=== PATIENT | female | born 1930 | race Caucasian/White ===

== ENCOUNTER 2016-10-31 08:17 | Emergency (ER) | payer OTHER ==
[2016-10-31 08:25] VITALS: RESP 18
--- NOTE | 2016-10-31 09:18 | EDPHY ---
H & P Time Seen by Provider: 10/31/16 09:00 HPI/ROS: CHIEF COMPLAINT: Cough congestion flu-like symptoms times 48 hours HISTORY OF PRESENT ILLNESS: 86-year-old female nonsmoker, arrives via private vehicle, no history chronic pulmonary condition complaining of 36-48 hours of nasal congestion, sore throat, nonproductive cough, sinus pressure. No chest pain. No back pain. No abdominal pain. No dyspnea. No headache. No altered mentation. No fever or chills. No abdominal pain. No nuchal rigidity Did receive influenza vaccination this season. PRIMARY CARE PROVIDER:Dr. Sandra Herndon REVIEW OF SYSTEMS: A ten point review of systems was performed and is negative with the exception of the items mentioned in the HPI PAST MEDICAL & SURGICAL HISTORY: No pertinent medical or surgical history SOCIAL HISTORY: nonsmoker PHYSICAL EXAM (Prior to examination, patient consented to physical exam, hands were washed and my usual and customary physical exam procedures followed) 1) GENERAL: Well-developed, well-nourished, alert and oriented. Appears nontoxic. 2) HEAD: Normocephalic, atraumatic 3) HEENT: Pupils equal, round, reactive to light bilaterally. Sclera anicteric. Nasopharynx, oropharynx, clear, no lesions. No tonsillar enlargement or tonsillar exudate. No trismus no drooling. Ears bilaterally with normal tympanic membranes. 4) NECK: Full range of motion, no meningeal signs. 5) LUNGS: Clear auscultation bilaterally, no wheezes, no rhonchi, no retractions. 6) HEART: Regular rate and rhythm, no murmur, no heave, no gallop. 7) ABDOMEN: No guarding, no rebound, no focal tenderness, negative McBurney's, 8) MUSCULOSKELETAL: No peripheral edema or discoloration. Negative Homans no palpable cord 9) BACK: No CVA tenderness 10) SKIN: No rash, no petechiae. 11) Psychiatric: Patient is oriented X 3, there is no agitation. answering questions appropriately DIFFERENTIAL DIAGNOSIS: in no particular include but limited to influenza, pneumonia, bronchitis, meningitis Smoking Status: Never smoked Constitutional: Initial Vital Signs Temperature (C) 36.9 C 10/31/16 08:21 Heart Rate 94 10/31/16 08:21 Respiratory Rate 18 10/31/16 08:21 Blood Pressure 188/65 H 10/31/16 08:21 O2 Sat (%) 91 L 10/31/16 08:21 O2 Delivery Mode Room Air Allergies/Adverse Reactions: ciprofloxacin Allergy (Intermediate, Verified 10/31/16 08:19) Rash amoxicillin [Amoxicillin] Allergy (Unknown, Verified 10/31/16 08:19) niacin Allergy (Unknown, Verified 10/31/16 08:19) diltiazem Allergy (Verified 10/31/16 08:19) hydrochlorothiazide [From Hyzaar] Allergy (Verified 10/31/16 08:19) losartan potassium [From Hyzaar] Allergy (Verified 10/31/16 08:19) Home Medications: Medication Instructions Recorded Aspirin [Ecotrin] 81 mg PO HS 07/13/12 Atorvastatin Calcium [Lipitor 40 40 mg PO DAILY@1800 07/13/12 mg (RX)] CALCIUM CARBONATE/VITAMIN D3 2 each PO DAILY@1500 07/13/12 [CALCIUM + D 600 MG TABLET] Cholecalciferol Vit D3 [Vitamin D3 2,000 units PO DAILY@1500 07/13/12 2000 units (OTC)] Cholecalciferol Vit D3 [Vitamin D3 400 units PO DAILY@1500 07/13/12 400 units (OTC)] Dexlansoprazole [Dexilant] 60 mg PO DAILY 07/13/12 EXENATIDE [BYETTA] 10 mcg SQ BID 07/13/12 Losartan Potassium [Cozaar 50 mg 50 mg PO DAILY 07/13/12 (RX)] Niacin ER [Niaspan 500 mg (RX)] 500 mg PO HS 07/13/12 [place]-3/Dha/Epa/Fish Oil [Fish Oil] 2,000 mg PO DAILY@1500 07/13/12 Pharmacy Completed 07/13/12 07/13/12 amLODIPine BESYLATE [Norvasc 5 mg 5 mg PO DAILY 07/13/12 (RX)] Md Reconciled 07/14/12 Amlodipine-Atorvast 5-10 mg 07/09/14 Atorvastatin Calcium 07/09/14 Byetta 07/09/14 DEXILANT 07/09/14 ECOTRIN 07/09/14 Norvasc 5 mg (RX) 07/09/14 AZITHROMYCIN [Z-PACK] 500 mg PO DAILY #1 packet 10/31/16 MDM/Departure - MDM Diagnostics: Note regarding radiology: Patient had a C-spine x-ray accidentally performed initially instead of a chest x-ray. This was performed in error. The patient has no C-spine concerns either subjectively or objectively on exam. Chest, PA and lateral HISTORY: Burning COMPARISON: June 17, 2015 FINDINGS: A moderate-sized hiatal hernia is again seen behind the heart. There is no infiltrate, consolidation or pleural effusion. Heart size and pulmonary vascularity are normal. There is chronic atherosclerotic calcification of the aorta. There is left carotid bifurcation vascular calcification. IMPRESSION: Hiatal hernia. Might the patient symptoms be related to gastroesophageal reflux? Dictated By: Todd Cruz MD Images reviewed by myself ED Course/Re-evaluation: 10:03 A.m.: Re-evaluation. She remained breathing comfortably. Recheck pulse oxygenation which is 95% on room air. No complaints of dyspnea. Reviewed her imaging studies with her. Will start the patient on azithromycin Usual and customary URI precautions provided. I do not think that the patient is septic at a not think that hospitalization is currently indicated. However, my usual and customary strict return precautions have been provided and she feels comfortable being discharged. All questions and concerns addressed by myself. - Depart Disposition: Home, Routine, Self-Care Clinical Impression: Upper respiratory tract infection Qualifiers: URI type: unspecified URI Qualifier Code: (J06.9) Acute upper respiratory infection, unspecified Condition: Good Instructions: Upper Respiratory Infection (ED) Additional Instructions: Return to the emergency department immediately for change in breathing habits, change in voice, change in swallowing habits, change in mental status, or any other symptoms that concern you. Prescriptions: AZITHROMYCIN [Z-PACK] 500 mg PO DAILY #1 packet Referrals: Sandra Herndon MD [Primary Care Provider] - 1-2 days without fail
--- NOTE | 2016-10-31 09:24 | DX ---
Cervical Spine, 2 Views History: Pain, burning in the throat. Technique: Upright AP and lateral Findings: There is no prevertebral soft tissue swelling or extraluminal gas. No obvious radiopaque fo reign material is identified. There is mild spondylolisthesis at C3-4 and C4-5. There is severe disc space narrowing at C5-6. Both large ventral and dorsal osteophytes. There is mild spondylolisthesis a t C6-C7 where the disc space is moderately narrowed and associated with anterior bridging osteophyte. This latter osteophyte is seen to cause an extrinsic posterior impression on the proximal air filled esophagus. Overall mineralization is normal. . On the AP view there is a cervical scoliosis concave to the right centered at C3. There is right carotid bifurcation vascular calcification. 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 No obvious acute abnormality identified. Might this patient benefit from an esophagram? Spine
--- NOTE | 2016-10-31 09:35 | DX ---
Chest, PA and lateral HISTORY: Burning COMPARISON: June 17, 2015 FINDINGS: A moderate-sized hiatal hernia is again seen behind the heart. There is no infiltrate, cons olidation or pleural effusion. Heart size and pulmonary vascularity are normal. There is chronic athe rosclerotic calcification of the aorta. There is left carotid bifurcation vascular calcification. IMPRESSION: Hiatal hernia. Might the patient symptoms be related to gastroesophageal reflux?
[2016-10-31 10:17] VITALS: BP 152/77; PULSE 79; TEMP 98.6; O2SAT 93
== END 2016-10-31 10:17 | disposition home or self-care (01) ==
DX: J06.9 Acute upper respiratory infection, unspecified (principal); Z79.82 Long term (current) use of aspirin

== ENCOUNTER 2017-12-02 17:47 | Emergency (ER) | payer OTHER ==
[2017-12-02 18:00] VITALS: BP 170/93; PULSE 71; RESP 20; TEMP 97.3; O2SAT 94
--- NOTE | 2017-12-02 18:34 | EDPHY ---
H & P Time Seen by Provider: 12/02/17 18:06 HPI/ROS: CHIEF COMPLAINT: Right hand pain HISTORY OF PRESENT ILLNESS: 87-year-old female arrives via private vehicle, no anticoagulant use beyond daily aspirin stating that she accidentally bumped the right 4th and 5th metacarpal earlier today and has noticed pain soft tissue swelling and ecchymosis in the same area. No paresthesia. No head injury. No proximal injury. PHYSICAL EXAM (Prior to examination, patient consented to physical exam, hands were washed and my usual and customary physical exam procedures followed) 1) GENERAL: Well-developed, well-nourished, alert and oriented. Appears to be in no acute distress. 2) HEAD: Normocephalic 3) HEENT: Pupils equal, round, reactive to light bilaterally. 4) LUNGS: Breathing comfortably. 5) MUSCULOSKELETAL: Tender to palpation 4th and 5th metacarpal. Fingers have normal cascading. No shortening no malrotation. Soft compartments. Normal coloration. 6) SKIN: Intact. Ecchymosis noted 7) VASCULAR: pulses and cap refill present are brisk 8) NEUROLOGIC: Radial, ulnar, median nerve function intact with no deficits appreciated on exam DIFFERENTIAL DIAGNOSIS: in no particular order including but not limited to fracture, sprain, compartment syndrome Smoking Status: Never smoked Constitutional: Initial Vital Signs Temperature (C) 36.3 C 12/02/17 17:57 Heart Rate 71 12/02/17 17:57 Respiratory Rate 20 12/02/17 17:57 Blood Pressure 170/93 H 12/02/17 17:57 O2 Sat (%) 94 12/02/17 17:57 O2 Delivery Mode Room Air Allergies/Adverse Reactions: ciprofloxacin Allergy (Intermediate, Verified 12/02/17 17:54) Rash amoxicillin [Amoxicillin] Allergy (Unknown, Verified 12/02/17 17:54) niacin Allergy (Unknown, Verified 12/02/17 17:54) diltiazem Allergy (Verified 12/02/17 17:54) hydrochlorothiazide [From Hyzaar] Allergy (Verified 12/02/17 17:54) losartan potassium [From Hyzaar] Allergy (Verified 12/02/17 17:54) Home Medications: Medication Instructions Recorded Aspirin [Ecotrin] 81 mg PO HS 07/13/12 Atorvastatin Calcium [Lipitor 40 40 mg PO DAILY@1800 07/13/12 mg (RX)] CALCIUM CARBONATE/VITAMIN D3 2 each PO DAILY@1500 07/13/12 [CALCIUM + D 600 MG TABLET] Cholecalciferol Vit D3 [Vitamin D3 2,000 units PO DAILY@1500 07/13/12 2000 units (OTC)] Cholecalciferol Vit D3 [Vitamin D3 400 units PO DAILY@1500 07/13/12 400 units (OTC)] Dexlansoprazole [Dexilant] 60 mg PO DAILY 07/13/12 Exenatide [BYETTA] 10 mcg SQ BID 07/13/12 Losartan Potassium [Cozaar 50 mg 50 mg PO DAILY 07/13/12 (RX)] Niacin ER [Niaspan 500 mg (RX)] 500 mg PO HS 07/13/12 [place]-3/Dha/Epa/Fish Oil [Fish Oil] 2,000 mg PO DAILY@1500 07/13/12 amLODIPine BESYLATE [Norvasc 5 mg 5 mg PO DAILY 07/13/12 (RX)] Amlodipine-Atorvast 5-10 mg 07/09/14 Atorvastatin Calcium 07/09/14 Byetta 07/09/14 DEXILANT 07/09/14 ECOTRIN 07/09/14 Norvasc 5 mg (RX) 07/09/14 MDM/Departure - MDM Procedures: Procedure: Splint Ulnar gutter Ortho Glass splint was applied by ER c2 tactical analysis technician. After application of the splint I returned and re-examined the patient. The splint was adequately immobilizing the joint and distal to the splint the patient's circulation and sensation were intact. Patient shows no signs of compartment syndrome. Was given orthopedic precautions. ED Course/Re-evaluation: Re-evaluation with serial exams. Neurovascularly intact. Care of patient under supervision of secondary supervising physician Dr Brandon Dean. - Depart Disposition: Home, Routine, Self-Care Clinical Impression: Right hand pain Contusion of right hand Qualifiers: Encounter type: initial encounter Qualified Code(s): S60.221A - Contusion of right hand, initial encounter Condition: Good Instructions: Hand Sprain (ED) Additional Instructions: Return to the ER immediately if you experience discoloration, have worsening pain, numbness, tingling, or any other symptoms that concern you. If you received x-rays in the emergency department today, be advised, that ligamentous , tendon, muscular, and other non-bony injury cannot be fully ruled out. Try to keep your affected extremity elevated above the level of your chest, and keep cold packs on the affected area, for the next 48 hours. Referrals: Tony Salas MD [Medical Doctor] - As per Instructions
== END 2017-12-02 18:45 | disposition home or self-care (01) ==
DX: S60.221A Contusion of right hand, initial encounter (principal); Z79.82 Long term (current) use of aspirin; W22.8XXA Striking against or struck by other objects, initial encounter